=== PATIENT | male | born 1990 | race Caucasian/White ===

== ENCOUNTER 2021-10-02 05:42 | Emergency (ER) | payer OTHER ==
[~2021-10-02] VITALS: Ht 182.9 cm; Wt 86.6 kg
[2021-10-02] MEDS ORDERED: IV NORMAL SALINE 1,000ML 1,000 ML IV ONE (06:15)
[2021-10-02] MEDS ORDERED: KETOROLAC 30 MG/ML VIAL. IVP ONE (06:15)
[2021-10-02] MEDS ORDERED: IOHEXOL 300 MG/ML 75 ML VIAL. IV ONE (06:15)
[2021-10-02] MEDS ORDERED: ONDANSETRON PF 4 MG/2 ML VIAL. IVP ONE (06:15)
--- NOTE | 2021-10-02 06:16 | PHYS DOC ---
Past History Past Surgical History: Other Additional Past Surgical Histo: bilateral shoulder surgery Alcohol Use: Occasionally General Adult EDM: Chief Complaint: BACK PAIN - NO INJURY HPI: HPI: 30-year-old male presents with right lower quadrant right flank pain. When the patient was getting ready for bed last night he started to have pain in the righ t flank. He denies any injury or overuse. The pain was a sharp cramping sensation. It kept him awake for couple hours but he was able to fall asleep. When he woke up this morning, the pain that radiated around to his lower quadrant. Even walking downstairs was painful due to the bouncing. He has never had pain like this before. He has no significant medical history. He denies nausea, vomiting, fever, chills, diarrhea. No history of abdominal surgeries or kidney stones. Review of Systems: Review of Systems: Constitutional: Denies fever or chills Eyes: Denies change in visual acuity HENT: Denies nasal congestion or sore throat Respiratory: Denies cough or shortness of breath Cardiovascular: Denies chest pain or edema GI: Right lower quadrant abdominal pain. Denies nausea, vomiting, bloody stools or diarrhea : Denies dysuria Musculoskeletal: Right flank pain Integument: Denies rash Neurologic: Denies headache, focal weakness or sensory changes Endocrine: Denies polyuria or polydipsia Lymphatic: Denies swollen glands Psychiatric: Denies depression or anxiety Current Medications: Current Meds: Current Medications Medications (Trade) Dose Ordered Sig/Tiffanie Start Time Stop Time Status Last Admin Dose Admin Ketorolac Tromethamine (Toradol 30mg Vial) 30 mg 1X ONCE 10/02/21 06:15 10/02/21 06:16 Ondansetron HCl (Zofran) 4 mg 1X ONCE 10/02/21 06:15 10/02/21 06:16 Sodium Chloride 1,000 ml @ 1,000 mls/hr 1X ONCE 10/02/21 06:15 10/02/21 07:14 Allergies: Allergies: Allergies Coded Allergies Type Severity Reaction Last Updated Verified No Known Drug Allergies 10/02/21 No Physical Exam: PE: Constitutional: Well developed, well nourished, no acute distress, non-toxic appearance. [] HENT: Normocephalic, atraumatic, bilateral external ears normal, oropharynx moist, no oral exudates, nose normal. [] Eyes: PERRLA, EOMI, conjunctiva normal, no discharge. [] Neck: Normal range of motion, no tenderness, supple, no stridor. [] Cardiovascular: Heart rate regular rhythm, no murmur [] Lungs & Thorax: Bilateral breath sounds clear to auscultation [] Abdomen: Bowel sounds normal, soft, no tenderness, no masses, no pulsatile masses. [] Skin: Warm, dry, no erythema, no rash. [] Back: No tenderness, mild right CVA tenderness. [] Extremities: No tenderness, no cyanosis, no clubbing, ROM intact, no edema. [] Neurologic: Alert and oriented X 3, normal motor function, normal sensory function, no focal deficits noted. [] Psychologic: Affect normal, judgement normal, mood normal. [] Current Patient Data: Vital Signs: Vital Signs Date Time Temp Pulse Resp B/P (MAP) Pulse Ox O2 Delivery O2 Flow Rate FiO2 10/02/21 05:52 97.8 45 16 139/75 (96) 99 Room Air EKG: EKG: [] Radiology/Procedures: Radiology/Procedures: [] Impressions: PQRS Compliance Statement: One or more of the following individualized dose reduction techniques were utilized for this examination: 1. Automated exposure control 2. Adjustment of the mA and/or kV according to patient size 3. Use of iterative reconstruction technique CT ABDOMEN+PELVIS W Clinical Indication: Reason: RLQ abd pain / Spl. Instructions: / History: Comparison: None. Technique: Helical CT imaging of the abdomen and pelvis is performed after 75 cc of Omnipaque 300 IV contrast. Oral contrast not administered. Findings: There is minimal bilateral dependent atelectasis. Cardiac size normal. 11 mm hypodensity in the right hepatic lobe is incompletely characterized. Liver otherwise homogeneous. The gallbladder, spleen, pancreas, adrenal glands, abdominal aorta, and kidneys are normal. The stomach is unremarkable. There is no dilated small bowel. Scattered stool in the colon. No colon wall thickening is identified. Appendix caliber is upper limits of normal measuring 8 mm. The appendix abuts the posterior ascending colon. There may be minimal periappendiceal induration, coronal image 23, axial image 44. There is no abdominal adenopathy or free fluid. The urinary bladder is now well distended, otherwise normal. Prostate size normal. No pelvic free fluid. No acute brain abnormality. IMPRESSION: The appendix is upper limits of normal in caliber. There may be minimal periappendiceal induration. Cannot exclude early/mild appendicitis. Consider short-term follow-up CT. Electronically signed by: Yasmany Price MD (10/02/2021 6:59 AM) [facility] DICTATED AND SIGNED BY: YASMANY PRICE MD DATE: 10/02/21 0650 CC: KOFI BETANCOURT DO; PCP,UNKNOWN ~MTH0 0 Heart Score: C/O Chest Pain: N/A Risk Factors: Risk Factors: DM, Current or recent (<one month) smoker, HTN, HLP, family history of CAD, obesity. Risk Scores: Score 0 - 3: 2.5% MACE over next 6 weeks - Discharge Home Score 4 - 6: 20.3% MACE over next 6 weeks - Admit for Clinical Observation Score 7 - 10: 72.7% MACE over next 6 weeks - Early Invasive Strategies Course & Med Decision Making: Course & Med Decision Making Pertinent Labs and Imaging studies reviewed. (See chart for details) The patient's labs are unremarkable. His urinalysis is negative for infection. His CT scan shows some constipation also upper limits normal for the appendix. This could be early appendicitis. I discussed this with the patient and he would prefer to go home and do watchful waiting from there. I will place him on Augmentin as this could help the acute appendicitis resolved. If the patient's condition worsens in any way he is welcome to come back to this hospital or go straight to the hospital with general surgery. He is stable for discharge at this time. [] Patrick Disclaimer: Patrick Disclaimer: This electronic medical record was generated, in whole or in part, using a voice recognition dictation system. Departure Departure: Impression: Primary Impression: Appendicitis Disposition: HOME / SELF CARE / HOMELESS Condition: STABLE Referrals: PCP,UNKNOWN (PCP) Patient Instructions: Abdominal Pain, Possible Early Appendicitis Scripts Amoxicillin/Potassium Clav (AUGMENTIN 875-125 TABLET) 1 Each Tablet 1 TAB PO BID for antibiotic for 7 Days, #14 TAB 0 Refills Prov: KOFI BETANCOURT DO 10/02/21 KOFI BETANCOURT DO Oct 02, 2021 06:16
[2021-10-02] MEDS ORDERED: CONTRAST GIVEN. MC PRN (06:30)
[2021-10-02 06:45] LABS: BASO # 0.1 x10^3/uL (0.0-0.2); BASO % 2 % (0-3); EOS # 0.2 x10^3/uL (0.0-0.7); EOS % 5 % (0-3); HEMATOCRIT 45.6 % (39.0-53.0); HEMOGLOBIN 15.2 g/dL (13.0-17.5); LYMPH # 1.2 x10^3/uL (1.0-4.8); LYMPH % 29 % (24-48); MEAN CORPUSCULAR HEMOGLOBIN 29 pg (25-35); MEAN CORPUSCULAR HGB CONC 33 g/dL (31-37); MEAN CORPUSCULAR VOLUME 89 fL (79-100); MONO # 0.4 x10^3/uL (0.0-1.1); MONO % 9 % (0-9); NEUT # 2.2 x10^3uL (1.8-7.7); NEUT % 55 % (31-73); PLATELET COUNT 219 x10^3/uL (140-400); RED BLOOD COUNT 5.15 x10^6/uL (4.30-5.70); RED CELL DISTRIBUTION WIDTH 12.8 % (11.5-14.5)
[2021-10-02 06:46] LABS: CALCIUM 8.8 mg/dL (8.5-10.1); CREATININE 1.1 mg/dL (0.7-1.3); GFR 78.1; POTASSIUM 4.2 mmol/L (3.5-5.1)
[2021-10-02 06:50] LABS: BILIRUBIN,URINE NEG (NEG); CLARITY,URINE CLEAR; COLOR,URINE YELLOW; GLUCOSE,URINE NEG (NEG)
[2021-10-02 06:51] LABS: BACTERIA,URINE 0 /HPF (0-FEW); NITRITE,URINE NEG (NEG); RBC,URINE 0 /HPF (0-2); SQUAMOUS EPITHELIAL CELL,UR OCC /LPF; UROBILINOGEN,URINE 0.2 mg/dL (0.2 mg/dL); WBC,URINE 0 /HPF (0-4)
[2021-10-02 06:52] LABS: ALBUMIN/GLOBULIN RATIO 1.5 (1.0-1.7); TOTAL BILIRUBIN 0.9 mg/dL (0.2-1.0); TOTAL PROTEIN 6.7 g/dL (6.4-8.2)
--- NOTE | 2021-10-02 07:01 | RAD ---
PQRS Compliance Statement: One or more of the following individualized dose reduction techniques were utilized for this examinat ion: 1. Automated exposure control 2. Adjustment of the mA and/or kV according to patient size 3. Use of iterative reconstruction technique CT ABDOMEN+PELVIS W Clinical Indication: Reason: RLQ abd pain / Spl. Instructions: / History: Comparison: None. Technique: Helical CT imaging of the abdomen and pelvis is performed after 75 cc of Omnipaque 300 IV contrast. Oral contrast not administered. Findings: There is minimal bilateral dependent atelectasis. Cardiac size normal. 11 mm hypodensity in the right hepatic lobe is incompletely characterized. Liver otherwise homogeneou s. The gallbladder, spleen, pancreas, adrenal glands, abdominal aorta, and kidneys are normal. The stomach is unremarkable. There is no dilated small bowel. Scattered stool in the colon. No colon wall thickening is identified. Appendix caliber is upper limits of normal measuring 8 mm. The appendi x abuts the posterior ascending colon. There may be minimal periappendiceal induration, coronal image 23, axial image 44. There is no abdominal adenopathy or free fluid. The urinary bladder is now well distended, otherwise normal. Prostate size normal. No pelvic free flu id. No acute brain abnormality. IMPRESSION: The appendix is upper limits of normal in caliber. There may be minimal periappendiceal induration. C annot exclude early/mild appendicitis. Consider short-term follow-up CT. Electronically signed by: Ysamany Gonzalez MD (10/02/2021 6:59 AM) [facility]
[2021-10-02] MEDS ORDERED: AMOX1TAB61 PO (07:22)
[2021-10-02 07:28] VITALS: BP 128/90
== END 2021-10-02 07:31 | disposition home or self-care (01) ==
LOC: ER 05:42
DX: K37 Unspecified appendicitis (principal)
CPT/HCPCS: 36415; 74177; 80053; 81001; 85025; 96361; 96374; 96375; 99284; J1885; J2405; J7030; Q9967